=== PATIENT | male | born 1965 | race Two or more races ===

== ENCOUNTER 2024-03-20 14:20 | Emergency (ER) | payer OTHER ==
[~2024-03-20] VITALS: Ht 160 cm; Wt 59.0 kg
[2024-03-20] MEDS ORDERED: PEPCID AC20 MG PO (17:17)
== END 2024-03-20 17:29 | disposition home or self-care (01) ==
LOC: ER 14:21
DX: B34.9 Viral infection, unspecified (principal); R53.81 Other malaise

== ENCOUNTER 2024-05-21 09:06 | Emergency (ER) | payer OTHER ==
[~2024-05-21] VITALS: Ht 160 cm; Wt 54.4 kg
[~2024-05-21 09:06] MED LIST: PEPCID AC20 MG PO
[2024-05-21] MEDS ORDERED: KETOROLAC TROMETHAMINE 60 MG VIAL IM ONE ×2 (09:45→09:53)
[2024-05-21] MEDS ORDERED: MURINE EAR WAX15 ML OT (09:56)
[2024-05-21] MEDS ORDERED: AMOXICILLIN500 M1 PO (09:56)
== END 2024-05-21 10:02 | disposition home or self-care (01) ==
LOC: ER 09:06
DX: H92.01 Otalgia, right ear (principal)

== ENCOUNTER 2024-05-26 16:12 | Emergency (ER) | payer OTHER ==
[~2024-05-26] VITALS: Ht 160 cm; Wt 56.7 kg
[~2024-05-26 16:12] MED LIST changes: +AMOXICILLIN500 M1 PO; +MURINE EAR WAX15 ML OT
[2024-05-26] MEDS ORDERED: KETOROLAC TROMETHAMINE 60 MG VIAL IM ONE ×2 (17:15→17:22)
[2024-05-26] MEDS ORDERED: DEXAMETHASONE SODIUM PHOSPHATE 4 MG/ML VIAL IM ONE (17:15)
[2024-05-26] MEDS ORDERED: CLINDAMYCIN PHOSPHATE 150 MG/ML (300mg) IM ONE (17:15)
[2024-05-26] MEDS ORDERED: CLINDAMYCIN PHOSPHATE 150 MG/ML (300mg) ONE (17:22)
[2024-05-26] MEDS ORDERED: DEXAMETHASONE SODIUM PHOSPHATE 4 MG/ML VIAL ONE (17:22)
[2024-05-26] MEDS ORDERED: KETO10TA2 PO (19:42)
[2024-05-26] MEDS ORDERED: CLEOCIN HCL300 MG PO (19:42)
== END 2024-05-26 20:06 | disposition home or self-care (01) ==
LOC: ER 16:12
DX: H92.01 Otalgia, right ear (principal)

== ENCOUNTER 2024-08-21 08:26 | Emergency (ER) | payer OTHER ==
[~2024-08-21] VITALS: Ht 160 cm; Wt 57.6 kg
[~2024-08-21 08:26] MED LIST changes: +CLEOCIN HCL300 MG PO; +KETO10TA2 PO
[2024-08-21 08:45] VITALS: BP 108/69; O2SAT 97
[2024-08-21] MEDS ORDERED: CEFTRIAXONE SODIUM 1,000 MG VIAL IM STA (09:23)
[2024-08-21] MEDS ORDERED: KETOROLAC TROMETHAMINE 30 MG VIAL IM STA (09:23)
== END 2024-08-21 09:46 | disposition home or self-care (01) ==
LOC: ER 08:28
DX: H92.01 Otalgia, right ear (principal)

== ENCOUNTER 2024-10-16 11:45 | Emergency (ER) | payer OTHER ==
[~2024-10-16] VITALS: Ht 160 cm; Wt 57.6 kg
[2024-10-16 12:27] VITALS: BP 130/84; O2SAT 100
[2024-10-16] MEDS ORDERED: KETOROLAC TROMETHAMINE 30 MG VIAL IM STA (14:36)
[2024-10-16] MEDS ORDERED: CEFTRIAXONE SODIUM 1,000 MG VIAL IM STA (14:36)
[2024-10-16] MEDS ORDERED: CEFTRIAXONE SODIUM 1,000 MG VIAL ONE (14:48)
[2024-10-16] MEDS ORDERED: KETOROLAC TROMETHAMINE 30 MG VIAL ONE (14:48)
== END 2024-10-16 14:57 | disposition home or self-care (01) ==
LOC: ER 11:45
DX: H61.21 Impacted cerumen, right ear (principal)

== ENCOUNTER 2025-03-04 12:37 | Emergency (ER) | payer OTHER ==
[~2025-03-04] VITALS: Ht 160 cm; Wt 54.4 kg
[2025-03-04 16:21] LABS: BASO % 0.4 % (0.1-1.2); EOS # 0.12 (0.04-0.54); EOS % 2.4 % (0.7-7.0); HEMATOCRIT 39.6 % (40.1-51.0); HEMOGLOBIN 13.6 g/dL (13.7-17.5); LYMPH # 2.32 (1.18-3.74); LYMPH % 45.8 % (19.3-53.1); MEAN CORPUSCULAR HEMOGLOBIN 30.9 pg (25.6-32.2); MONO % 7.9 % (4.7-12.5); NEUT # 2.19 (1.56-6.13); NEUT % 43.3 % (34.0-71.1); PLATELET COUNT 219 K/uL (163-369)
[2025-03-04 16:48] LABS: INFLUENZA A AG NEGATIVE (NEGATIVE); INFLUENZA B AG NEGATIVE (NEGATIVE)
[2025-03-04 16:49] LABS: COVID-19 AG NEGATIVE (NEGATIVE)
[2025-03-04 17:22] LABS: PH,URINE 5.5 (5.0-8.0); URINE APPEARANCE Clear; URINE BILIRRUBIN Negative (NEGATIVE); URINE BLOOD Negative; URINE COLOR Dark Yellow; URINE GLUCOSE Negative (NEGATIVE); URINE KETONE 15 (NEGATIVE); URINE LEUKOCYTE Trace; URINE NITRATE Negative; URINE PROTEIN 30 (NEGATIVE)
[2025-03-04 17:24] LABS: URINE BACTERIA 58.7 uL (0.0-1933); URINE EPITHELIAL CELLS 12.9 uL (0.0-38.8); URINE RBC 13.4 uL (0.0-20.8); URINE WBC 28.9 uL (0.0-23.2)
[2025-03-04 17:40] LABS: URINE CAST 0.44 uL (0.0-1.40)
[2025-03-04 17:55] LABS: ALBUMIN 3.9 gm/dL (3.4-5.0); BILIRUBIN TOTAL 0.48 mg/dL (0.3-1.2); CALCIUM 9.9 mg/dL (8.5-10.1); CREATININE SERUM 0.82 mg/dL (0.70-1.30); GFR 95.83; GLOBULINA 3.7 G/DL (2.4-3.5); POTASSIUM 4.36 mEq/L (3.5-5.1); TOTAL PROTEIN 7.6 gm/dL (6.4-8.2)
[2025-03-04] MEDS ORDERED: CIPRO500 MG PO (20:36)
[2025-03-04] MEDS ORDERED: FAMOtidine 20 MG TABLET PO STA (20:38)
[2025-03-04] MEDS ORDERED: FAMOTIDINE/PF 20 MG/2 ML VIAL ONE (20:42)
[2025-03-04] MEDS ORDERED: FAMOTIDINE/PF 20 MG/2 ML VIAL IV PUSH ONE (21:00)
== END 2025-03-04 20:51 | disposition home or self-care (01) ==
LOC: ER 12:37
PROVIDERS: Preventive Medicine Public Health & General Preventive Medicine
DX: N39.0 Urinary tract infection, site not specified (principal); R10.9 Unspecified abdominal pain; Z20.822 Contact with and (suspected) exposure to COVID-19

== ENCOUNTER 2025-04-14 06:57 | Emergency (ER) | payer OTHER ==
[~2025-04-14] VITALS: Ht 160 cm; Wt 54.4 kg
[~2025-04-14 06:57] MED LIST changes: +CIPRO500 MG PO
[2025-04-14] MEDS ORDERED: TAMS0.4C (07:11)
[2025-04-14] MEDS ORDERED: TAMSULOSIN HCL 0.4 MG CAP PO STA (08:06)
[2025-04-14] MEDS ORDERED: HYOSCYAMINE SULFATE 0.125 MG TAB.SUBL ONE (08:08)
[2025-04-14] MEDS ORDERED: TAMSULOSIN HCL 0.4 MG CAP PO ONE (08:08)
[2025-04-14] MEDS ORDERED: HYOSCYAMINE SULFATE 0.125 MG TAB.SUBL SL ONE (08:15)
[2025-04-14 08:49] LABS: BASO % 0.5 % (0.1-1.2); EOS # 0.12 (0.04-0.54); EOS % 3.3 % (0.7-7.0); LYMPH # 1.58 (1.18-3.74); LYMPH % 43.1 % (19.3-53.1); MEAN PLATELET VOLUME 8.90 fl (9.4-12.4); MONO # 0.40 (0.24-0.82); MONO % 10.9 % (4.7-12.5); NEUT # 1.55 (1.56-6.13); NEUT % 42.2 % (34.0-71.1); RED CELL DISTRIBUTION WIDTH 13.0 % (11.6-14.4)
[2025-04-14 09:35] LABS: URINE APPEARANCE Clear; URINE BILIRRUBIN Negative (NEGATIVE); URINE BLOOD Negative; URINE COLOR Yellow; URINE GLUCOSE Negative (NEGATIVE); URINE KETONE Trace (NEGATIVE); URINE LEUKOCYTE Negative; URINE NITRATE Negative; URINE PROTEIN Trace (NEGATIVE); URINE UROBILINOGEN 1.0 E.U./dl
[2025-04-14 09:40] LABS: URINE BACTERIA 15.5 uL (0.0-1933); URINE EPITHELIAL CELLS 5.3 uL (0.0-38.8); URINE RBC 5.2 uL (0.0-20.8); URINE WBC 13.0 uL (0.0-23.2)
[2025-04-14 09:52] LABS: BUN CREA RATIO 26.0 (7.0-25.0); CREATININE SERUM 0.73 mg/dL (0.70-1.30); GFR 109.6; GLUCOSE FASTING 84.0 mg/dL (65-100); OSMOLALITY SERUM 286.0 MOSM/KG (275-295)
[2025-04-14 09:56] LABS: PROSTATIC SPECIFIC ANTIGEN 5.85 NG/ML (0.010-4.00)
[2025-04-14 10:04] LABS: URINE CAST 0.14 uL (0.0-1.40)
== END 2025-04-14 10:38 | disposition home or self-care (01) ==
LOC: ER 07:19
DX: R30.0 Dysuria (principal)